=== PATIENT | female | born 1960 | race Hispanic/Latino ===

== ENCOUNTER 2017-09-29 21:48 | Emergency (ER) | payer BC ==
[~2017-09-29] VITALS: Ht 167.6 cm; Wt 127.0 kg
[~2017-09-29 21:48] MED LIST: BENAZEPRIL HCL10 MG PO; HYDROCHLOROTHIA25 MG PO; NORVASC5 MG PO; Z.0.AMLODIPINE BESY1 PO; Z.0.AZITHROMYCIN250 PO; Z.0.BENAZEPRIL HCL20 PO; Z.0.GLIPIZIDE10 MG PO; Z.0.LEVOTHYROXINE100; Z.2.METFORMIN HCL500 PO; ZIAC1 UDTAB PO; [UNRECOGNIZED DRUG - OTHER] PO
[2017-09-29] MEDS ORDERED: ACETAMINOPHEN 325 MG TAB PO ONE (22:30)
[2017-09-29 23:10] LABS: INFLUENZAE A&B ANTIGEN (RAPID) NEGATIVE (NEGATIVE); STREPTOCOCCUS GRP A ANTIGEN NEGATIVE (NEGATIVE)
--- NOTE | 2017-09-29 23:43 | Diagnostic Imaging Report ---
EXAMINATION: CHEST 2 VIEWS INDICATION: Cough, congestion COMPARISON: None FINDINGS: TUBES and LINES: None. LUNGS: Lungs are well inflated. There are bibasilar atelectasis. There is mild prominence of the central pulmonary vasculature, consistent with pulmonary venous congestion. PLEURA: No pleural effusion or pneumothorax. HEART AND MEDIASTINUM: The cardiomediastinal silhouette is unremarkable. There are atherosclerotic calcifications within the aorta. BONES AND SOFT TISSUES: No acute osseous lesion. Soft tissues are unremarkable. UPPER ABDOMEN: No free air under the diaphragm. IMPRESSION: No acute thoracic abnormality. Signed by: Dr. Uvaldo Hastings M.D. on 09/29/2017 11:40 PM
[2017-09-30 00:59] VITALS: BP 114/64
== END 2017-09-30 03:21 | disposition home or self-care (01) ==
LOC: ER 21:48
DX: J00 Acute nasopharyngitis [common cold] (principal); J02.9 Acute pharyngitis, unspecified; I10 Essential (primary) hypertension; E11.9 Type 2 diabetes mellitus without complications; E03.9 Hypothyroidism, unspecified
CPT/HCPCS: 71046; 83518; 87070; 87400; 99283

== ENCOUNTER 2018-05-26 10:52 | Emergency (ER) | payer BC ==
[~2018-05-26] VITALS: Ht 167.6 cm; Wt 128.4 kg
--- OUTSIDE RECORDS SUMMARY | 2018-05-26 10:54 | XMS REPORT | Continuity of Care Document ---
Author Author [facility] Interface Address Unknown Phone Unavailable Problems Problem Status Onset Date Classification Date Reported Comments Source R05 Active 01/12/2018 [facility] Unspecified cholesteatoma, left ear 10/19/2017 01/19/2018 [facility] [place] Active 10/04/2017 [facility] R06.02 Active 02/04/2016 [facility] M17.9 Active 05/14/2015 [facility] Diabetes Active Problem 01/19/2018 [facility] HTN (<span [id number]">Confirmed</span>) Active Problem 01/19/2018 [facility] Hypothyroidism Active Problem 01/19/2018 [facility] Pneumonia Resolved Problem 01/19/2018 [facility] Disorder of left external ear, unspecified 01/19/2018 [facility] Type 2 diabetes mellitus without complications Active Problem 12/15/2017 [facility] [place], [place] Morbid obesity due to excess calories Active Problem 12/15/2017 Nakul Draper MD, [place] Hypertensive heart disease without heart failure Active Problem 12/15/2017 Nakul Draper MD, [place] Dependence on supplemental oxygen Active Problem 12/15/2017 Nakul Draper MD, [place] Hypertensive heart disease with heart failure Active Problem 12/15/2017 Nakul Draper MD, [place] OSTEOARTHRITIS OF KNEE, UNSPECIFIED Active [facility] Medications Medication Details Route Status Patient Instructions Ordering Provider Order Date Source Acetaminophen 325 MG / Hydrocodone Bitartrate 7.5 MG Oral Tablet [[place] 7.5/325] See Instructions, PRN Pain Score 4-6, 1 -2 tab PO Q4-6H as needed, # 50 tab, 0 Refill(s)Special Instructions: 1 -2 tab PO Q4-6H as needed Active 05/26/2015 [facility] rivaroxaban 10 mg oral tablet 10 mg=1 tab, PO, Q24H, # 14 tab, 0 Refill(s) Active 05/25/2015 [facility] Hydrochlorothiazide 50 MG Oral Tablet 50 mg, 1 tab, Route: PO, Drug form: TAB, Daily, Dosing Weight 127.273, kg, Start date: 05/25/15 9:00:00, Duration: 30 day, Stop date: 06/23/15 9:00:00Notes: (Same as: Hydrodiuril) With food. No Longer Active 05/25/2015 [facility] benazepril 40 mg, Route: PO, Drug form: TAB, Daily, Dosing Weight 127.273, kg, Start date: 05/25/15 9:00:00, Duration: 30 day, Stop date: 06/23/15 9:00:00 No Longer Active 05/25/2015 [facility] Norvasc 10 mg, 2 tab, Route: PO, Drug form: TAB, Daily, Dosing Weight 127.273, kg, Start date: 05/25/15 9:00:00, Duration: 30 day, Stop date: 06/23/15 9:00:00Notes: (Same as: Norvasc) No Longer Active 05/25/2015 [facility] Prinivil 40 mg, 2 tab, Route: PO, Drug form: TAB, Daily, Start date: 05/25/15 9:00:00, Duration: 30 day, Stop date: 06/23/15 9:00:00Notes: (Same as: Prinivil, Zestril) No Longer Active 05/25/2015 [facility] Xarelto 10 mg, Route: PO, Daily, Dosing Weight 127.273, kg, Start date: 05/25/15 9:00:00, Duration: 30 day, Stop date: 06/23/15 9:00:00 No Longer Active 05/25/2015 [facility] Thyroxine 50 microgram, 1 tab, Route: PO, Drug form: TAB, Q630AM, Dosing Weight 127.273, kg, Start date: 05/25/15 6:30:00, Duration: 30 day, Stop date: 06/23/15 6:30:00Notes: Take 1 hour before or 2 hours after meal; Enteral feeds may interefere with the absorption of this medication.(Same as:Levothroid, Synthroid) No Longer Active 05/25/2015 [facility] rivaroxaban 10 mg, 1 tab, Route: PO, Drug form: TAB, Q24H, Dosing Weight 127.273, kg, Start date: 05/24/15 18:30:00, Duration: 30 day, Stop date: 06/22/15 18:30:00Notes: (Same as: Xarelto) Do Not Crush No Longer Active 05/24/2015 [facility] docusate sodium 100 mg oral capsule 100 mg, 1 cap, Route: PO, Drug form: CAP, BID, Dosing Weight 127.273, kg, Start date: 05/24/15 17:00:00, Duration: 30 day, Stop date: 06/23/15 9:00:00Notes: (Same as: Colace) (Do Not Crush) No Longer Active 05/24/2015 [facility] ceFAZolin (SCIP) 2 gm, 100 mL, Route: IVPB, Drug form: INJ, Q8H, Dosing Weight 127.273, kg, Start date: 05/24/15 16:00:00, Duration: 1 doses or times, Stop date: 05/24/15 16:00:00Notes: Same as: Ancef Inactive 05/24/2015 [facility] Insulin, Aspart, Human 2 unit, 0.02 mL, Route: SUB-Q, Drug form: SOLN, Bedtime, Dosing Weight 127.273, kg, PRN Blood Glucose Results, Start date: 05/24/15 14:48:00, Duration: 30 day, Stop date: 06/23/15 14:47:00Notes: Roll in palms of hands gently; Do not shake vigorously. (Same as: NovoLOG) "single patient use only" Stable for 28 days at room temperature. Expires in days from Date No Longer Active 05/24/2015 [facility] Glucagon 1 mg, Route: IM, Drug form: PDR/INJ, PRN, Dosing Weight 127.273, kg, PRN Blood Glucose Results, Start date: 05/24/15 14:48:00, Duration: 30 day, Stop date: 06/23/15 13:47:00 No Longer Active 05/24/2015 [facility] Dextrose 50% Syringe 12.5 gm, 25 mL, Route: IVP, Drug Form: INJ, Dosing Weight 127.273, kg, PRN, PRN Blood Glucose Results, Start date: 05/24/15 14:48:00, Duration: 30 day, Stop date: 06/23/15 13:47:00 No Longer Active 05/24/2015 [facility] Albuterol 0.83 MG/ML Inhalant Solution 2.49 mg, 3 mL, Route: NEB, Drug form: SOLN, PRN, Dosing Weight 127.273, kg, PRN Respiratory Protocol, Start date: 05/24/15 13:03:00, Duration: 30 day, Stop date: 06/23/15 12:02:00Notes: SEE RT DOCUMENTATION (Same as: Omid) No Longer Active 05/24/2015 [facility] Acetaminophen 325 MG / Hydrocodone Bitartrate 7.5 MG Oral Tablet [[place] 7.5/325] 1 tab, Route: PO, Drug Form: TAB, Dosing Weight 127.273, kg, Q4H, PRN Pain Score 7-10, Start date: 05/24/15 12:16:00, Duration: 30 day, Stop date: 06/23/15 12:15:00, pain score 4-10Notes: Same as [place] 325-7.5mg Do not exceed 4gm/day of acetaminophen. No Longer Active 05/24/2015 [facility] Al hydroxide/Mg hydroxide/simethicone 200 mg-200 mg-20 mg/5 mL oral suspension 30 ml, Route: PO, Drug Form: SUSP, Dosing Weight 127.273, kg, Q4H, PRN Indigestion, Start date: 05/24/15 12:16:00, Duration: 30 day, Stop date: 06/23/15 12:15:00Notes: (aluminum hydroxide-magnesium hyd-simethicone [phone]/5ml 30 ml ud MARLEN) No Longer Active 05/24/2015 [facility] Diphenhydramine 25 mg, 1 tab, Route: PO, Drug form: TAB, Q6H, Dosing Weight 127.273, kg, PRN Itching, Start date: 05/24/15 12:16:00, Duration: 30 day, Stop date: 06/23/15 12:15:00 No Longer Active 05/24/2015 [facility] Dulcolax Laxative 5 mg, 1 tab, Route: PO, Drug form: ECTAB, Q24H, Dosing Weight 127.273, kg, PRN Constipation, Start date: 05/24/15 12:16:00, Duration: 30 day, Stop date: 06/23/15 12:15:00Notes: (Same As: Dulcolax, Correctol) (Do Not Crush) "Do Not Crush" No Longer Active 05/24/2015 [facility] Lactated Ringers IV 1,000 mL 1,000 mL, Rate: 100 ml/hr, Infuse over: 10 hr, Route: IV, Dosing Weight 127.273 kg, Total Volume: 1,000, Start date: 05/24/15 12:16:00, Duration: 30 day, Stop date: 06/23/15 12:15:00 No Longer Active 05/24/2015 [facility] Acetaminophen 650 mg, 2 tab, Route: PO, Drug form: TAB, Q4H, Dosing Weight 127.273, kg, PRN Pain 1-3/Temp > 100.4 F, Start date: 05/24/15 12:16:00, Duration: 30 day, Stop date: 06/23/15 12:15:00Notes: Do not exceed 4 gm/day. (Same as: Tylenol) No Longer Active 05/24/2015 [facility] Ketorolac 15 mg, 1 mL, Route: IVP, Drug form: INJ, Q6H, Dosing Weight 127.273, kg, PRN Pain Score 1-3, Start date: 05/24/15 12:16:00, Duration: 3 day, Stop date: 05/27/15 12:15:00Notes: (Same as:Toradol) IV bolus must be given >15 seconds. Give IM administration slowly and deeply into the muscle. Not for use > 4 days. No Longer Active 05/24/2015 [facility] Ondansetron 4 mg, 2 mL, Route: IVP, Drug form: INJ, Q8H, Dosing Weight 127.273, kg, PRN Nausea & Vomiting, Start date: 05/24/15 12:16:00, Duration: 30 day, Stop date: 06/23/15 12:15:00Notes: (Same as: Zofran) MEDICATION WASTE Product Size: 4 mg Product Wasted: ___ mg No Longer Active 05/24/2015 [facility] Hydromorphone 0.3 mg, 0.3 mL, Route: IVP, Drug form: INJ, Q3H, Dosing Weight 127.273, kg, PRN Pain Score 4-6, Start date: 05/24/15 12:16:00, Duration: 30 day, Stop date: 06/23/15 12:15:00 No Longer Active 05/24/2015 [facility] Calcium Chloride 0.0014 MEQ/ML / Potassium Chloride 0.004 MEQ/ML / Sodium Chloride 0.103 MEQ/ML / Sodium Lactate 0.028 MEQ/ML Injectable Solution 1,000 mL, Rate: 25 ml/hr, Infuse over: 40 hr, Route: IV, Dosing Weight 127.273 kg, Total Volume: 1,000, Start date: 05/24/15 10:03:00, Duration: 30 day, Stop date: 06/23/15 10:02:00 Inactive 05/24/2015 [facility] levothyroxine 50 mcg (0.05 mg) oral tablet 50 microgram=1 tab, PO, Daily, # 30 tab, 0 Refill(s) Active 05/20/2015 [facility] Metformin hydrochloride 500 MG Oral Tablet 500 mg=1 tab, PO, BID-Meals, # 30 tab, 0 Refill(s) Active 05/20/2015 [facility] Hydrochlorothiazide 50 MG Oral Tablet 50 mg=1 tab, PO, Daily, # 30 tab, 0 Refill(s) Active 05/20/2015 [facility] benazepril 40 mg oral tablet 40 mg=1 tab, PO, Daily, # 90 tab, 0 Refill(s) Active 05/20/2015 [facility] Amlodipine 10 MG Oral Tablet [Norvasc] 10 mg=1 tab, PO, Daily, # 30 tab, 1 Refill(s) Active 05/20/2015 [facility] Furosemide 1 tablet Orally Active 40 MG Orally Once a day Bonny Draper MD, [place] Hydrochlorothiazide 1 tablet Orally Active 50 MG Orally Once a day Bonny Draper MD, [place] MetFORMIN HCl ER 1 tablet with evening meal Orally Active 500 MG Orally Once a day Bonny Draper MD, [place] Potassium Chloride ER 1 tablet with food Orally Active 10 MEQ Orally Once a day Bonny Draper MD, [place] GlipiZIDE 1 tablet Orally Active 10 MG Orally Once a day Bonny Draper MD, [place] Norvasc 1 tablet Orally Active 10 MG Orally Once a day Bonny Draper MD, [place] Benazepril HCl 1 tablet Orally Active 40 MG Orally Once a day Bonny Draper MD, [place] Levothyroxine Sodium 1 tablet Orally Active 50 MCG Orally Once a day Bonny Draper MD, [place] Allergies, Adverse Reactions, Alerts Substance Category Reaction Severity Reaction type Status Date Reported Comments Source N.K.D.A. Adverse Reaction Info Not Available Adverse Reaction Active 03/22/2016 Nakul Draper MD, [place] Immunizations Immunization Date Given Site Status Last Updated Comments Source Results Order Name Results Value Reference Range Date Interpretation Comments Source Chest 2 views DX Chest 2 views DX Clinical Indication: - Cough. Comparison: 02/17/2016 TECHNIQUE: Frontal and lateral chest radiographs were performed. (2 views) FINDINGS: LUNGS: Normal lung volumes. No interstitial or airspace opacities. No pleural effusions or pneumothorax. HEART AND MEDIASTINUM: The heart is normal in size. The trachea is in the midline. The bilateral marah are unremarkable. OSSEOUS STRUCTURES: No acute abnormality seen. IMPRESSION: No acute cardiopulmonary disease. SL: TIARA 01/12/2018 - - Read by: Jeri Alvarenga MD Dictated Date/time: 01/12/18 15:05 Electronically Signed by: Jeri Alvarenga MD 01/12/18 15:06 FINAL REPORT [facility] Internal Auditory Canal wo contrast CT Internal Auditory Canal wo contrast CT EXAM: CT TEMPORAL BONE WITHOUT CONTRAST DATE: 10/12/2017 9:33 AM SKIN LAP BONDER INDICATION: - H71.92 Unspecified cholesteatoma, left ear, H61.90 Disorder of external ear, unspecified, unspecified ear COMPARISON: None TECHNIQUE: Axial noncontrast CT images of the temporal bone, with coronal and sagittal reformats IV contrast: None. DLP: 382 mGy-cm FINDINGS: LEFT: There is mild soft tissue thickening along the quinteros of the EAC with polypoid thickening along the anteromedial wall measuring 5 x 3 mm. This can be correlated with clinical examination. The tympanic membrane is mildly thickened along the superior aspect. The scutum is intact.. The ossicles are unremarkable. The epitympanum and mesotympanum are clear. The hypotympanic recesses are clear. The mastoid air cells are clear. The tegmen and mastoid tympani are intact. The jugular bulb and carotid canal are unremarkable. The vestibule and cochlea are within normal limits. No semicircular dehiscence is seen. The IACs normal in caliber. RIGHT: There is soft tissue thickening all along the external auditory canal all the way to the tympanic membrane. This measures up to 2.5 mm in thickness. No polypoid thickening seen. The tympanic membrane is thickened. The epitympanum and mesotympanum are clear. There is focal soft tissue in the anterior aspect of the hypotympanum measuring 4 mm. The hypotympanic recesses are clear. The oval and round window niche are clear. The stapes is unremarkable. The inner ear structures are unremarkable. The semicircular canals are not dehiscent. The facial canal is unremarkable. Moderate mucosal thickening is seen in bilateral mastoid air cells. IMPRESSION: Left temporal bone: Mild soft tissue thickening all along the EAC quinteros with somewhat polypoid appearance along the anteromedial aspect. Mild thickening of the tympanic membrane. Findings may be related to chronic inflammatory process/canal fibrosis or acute otitis externa. This can be correlated with clinical examination. The middle ear cavity is clear. No ossicular or osseous erosions. Right temporal bone: Mild soft tissue thickening all along the EAC quinteros without polypoid thickening, may be acute or chronic inflammation or fibrosis. Tympanic membrane is thickened as well. The epitympanum and mesotympanum are clear. There is 4 mm soft tissue in the anterior aspect of the hypotympanum. The hypotympanic recesses are clear. No osseous erosions seen. Short interval follow-up may be considered. Moderate mucosal thickening in the maxillary sinuses. 10/12/2017 - - Read by: Chaya Lloyd Dictated Date/time: 10/12/17 11:35 Electronically Signed by: Chaya Lloyd 10/12/17 11:52 FINAL REPORT [facility] Chest 2 views DX Chest 2 views DX Study: Chest 2 views DX Clinical Indication: R06.2 Wheezing Comparison: Chest x-ray from 05/20/2015 FINDINGS: The cardiac silhouette is normal in size. The lungs are clear and without consolidation or congestion. No pleural effusion or pneumothorax is seen. The osseous structures are unremarkable. IMPRESSION: No acute cardiopulmonary disease. SL: [id number] 02/17/2016 - - Read by: Yovanny Jacobs MD Dictated Date/time: 02/17/16 16:33 Electronically Signed by: Yovanny Jacobs MD 02/17/16 16:33 FINAL REPORT [facility] Hct 31.0 % 36.0 - 48.0 05/26/2015 [facility] Hgb 9.8 g/dL 12.0 - 16.0 05/26/2015 [facility] Hct 33.1 % 36.0 - 48.0 05/25/2015 [facility] Hgb 10.6 g/dL 12.0 - 16.0 05/25/2015 [facility] CHEM PANEL eGFR 72 mL/min/1.73m2 05/24/2015 Result Comment: The eGFR is calculated using the CKD-EPI formula. In most young, healthy individuals the eGFR will be >90 mL/min/1.73m2. The eGFR declines with age. An eGFR of 60-89 may be normal in some populations, particularly the elderly, for whom the CKD-EPI formula has not been extensively validated. Use of the eGFR is not recommended in the following populations: Individuals with unstable creatinine concentrations, including patients and those with serious co-morbid conditions. Patients with extremes in muscle mass or diet. The data above are obtained from the National Kidney Disease Education Program (NKDEP) which additionally recommends that when the eGFR is used in patients with extremes of body mass index for purposes of drug dosing, the eGFR should be multiplied by the estimated BMI. [facility] CHEM PANEL Creatinine Lvl 0.9 mg/dL 0.5 - 1.4 05/24/2015 [facility] Platelet 341 K/CMM 133 - 450 05/24/2015 [facility] PTT 28.2 s 22.9 - 35.8 05/24/2015 [facility] Knee 1-2 Views unilateral DX Knee 1-2 Views unilateral DX Examination: Right knee, 2 views History: Arthritis Comparison: 05/20/2015 Findings: Two views of the right knee show new postoperative changes of total knee arthroplasty and patellar resurfacing with overlying soft tissue swelling and soft tissue gas. Anatomic alignment is maintained across the knee. IMPRESSION: Status post right total knee arthroplasty. SL: 16 05/24/2015 - - Read by: Yovanny Jacobs MD Dictated Date/time: 05/24/15 13:37 Electronically Signed by: Yovanny Jacobs MD 05/24/15 13:38 FINAL REPORT [facility] BLOOD BANK RESULTS Antibody Scrn Negative (05/20/15 12:58 PM) 05/20/2015 [facility] BLOOD BANK RESULTS ABO/Rh O NEG 05/20/2015 [facility] CHEM PANEL eGFR 98 mL/min/1.73m2 05/20/2015 Result Comment: The eGFR is calculated using the CKD-EPI formula. In most young, healthy individuals the eGFR will be >90 mL/min/1.73m2. The eGFR declines with age. An eGFR of 60-89 may be normal in some populations, particularly the elderly, for whom the CKD-EPI formula has not been extensively validated. Use of the eGFR is not recommended in the following populations: Individuals with unstable creatinine concentrations, including patients and those with serious co-morbid conditions. Patients with extremes in muscle mass or diet. The data above are obtained from the National Kidney Disease Education Program (NKDEP) which additionally recommends that when the eGFR is used in patients with extremes of body mass index for purposes of drug dosing, the eGFR should be multiplied by the estimated BMI. [facility] CHEM PANEL Total Protein 8.3 g/dL 6.4 - 8.4 05/20/2015 [facility] CHEM PANEL CO2 30 meq/L 24 - 32 05/20/2015 [facility] CHEM PANEL Albumin Lvl 3.6 g/dL 3.5 - 5.0 05/20/2015 [facility] CHEM PANEL Calcium Lvl 9.3 mg/dL 8.5 - 10.5 05/20/2015 [facility] CHEM PANEL Creatinine Lvl 0.7 mg/dL 0.5 - 1.4 05/20/2015 [facility] CHEM PANEL Bili Total 0.4 mg/dL 0.2 - 1.3 05/20/2015 [facility] CHEM PANEL BUN 14 mg/dL 7 - 22 05/20/2015 [facility] CHEM PANEL Glucose Lvl 125 mg/dL 70 - 99 05/20/2015 [facility] CHEM PANEL Alk Phos 123 unit/L 39 - 136 05/20/2015 [facility] CHEM PANEL AST 8 unit/L 0 - 37 05/20/2015 [facility] CHEM PANEL ALT 27 unit/L 0 - 65 05/20/2015 [facility] CHEM PANEL Potassium Lvl 3.6 meq/L 3.5 - 5.1 05/20/2015 [facility] CHEM PANEL Chloride Lvl 92 meq/L 95 - 109 05/20/2015 [facility] CHEM PANEL Sodium Lvl 131 meq/L 135 - 145 05/20/2015 [facility] CHEM PANEL AGAP 12.6 meq/L 10.0 - 20.0 05/20/2015 [facility] CHEM PANEL Globulin 4.7 g/dL 2.0 - 4.0 05/20/2015 [facility] CHEM PANEL B/C Ratio 20 6 - 25 05/20/2015 [facility] CHEM PANEL A/G Ratio 0.8 0.7 - 1.6 05/20/2015 [facility] HEMATOLOGY INR 1.12 0.85 - 1.17 05/20/2015 [facility] HEMATOLOGY PT 14.7 s 12.0 - 14.7 05/20/2015 [facility] HEMATOLOGY PTT 30.5 s 22.9 - 35.8 05/20/2015 [facility] HEMATOLOGY Platelet 349 K/CMM 133 - 450 05/20/2015 [facility] HEMATOLOGY MPV 7.5 fL 7.4 - 10.4 05/20/2015 [facility] HEMATOLOGY RDW 14.7 % 11.5 - 14.5 05/20/2015 [facility] HEMATOLOGY MCV 81.5 fL 80.0 - 98.0 05/20/2015 [facility] HEMATOLOGY MCHC 32.5 g/dL 32.0 - 36.0 05/20/2015 [facility] HEMATOLOGY Hgb 12.6 g/dL 12.0 - 16.0 05/20/2015 [facility] HEMATOLOGY MCH 26.5 pg 27.0 - 31.0 05/20/2015 [facility] HEMATOLOGY RBC 4.74 M/CMM 4.20 - 5.40 05/20/2015 [facility] HEMATOLOGY Hct 38.6 % 36.0 - 48.0 05/20/2015 [facility] HEMATOLOGY WBC 10.5 K/CMM 3.7 - 10.4 05/20/2015 [facility] HEMATOLOGY Basophils # 0.1 K/CMM 0.0 - 0.2 05/20/2015 [facility] HEMATOLOGY Eosinophils # 0.1 K/CMM 0.0 - 0.5 05/20/2015 [facility] HEMATOLOGY Monocytes # 0.7 K/CMM 0.0 - 0.8 05/20/2015 [facility] HEMATOLOGY Lymphocytes # 2.3 K/CMM 1.0 - 5.5 05/20/2015 [facility] HEMATOLOGY Segs-Bands # 7.3 K/CMM 1.5 - 8.1 05/20/2015 [facility] HEMATOLOGY Basophils 1.1 % 0.0 - 1.0 05/20/2015 [facility] HEMATOLOGY Monocytes 6.5 % 2.0 - 12.0 05/20/2015 [facility] HEMATOLOGY Eosinophils 1.2 % 0.0 - 4.0 05/20/2015 [facility] HEMATOLOGY Segs 69.2 % 45.0 - 75.0 05/20/2015 [facility] HEMATOLOGY Lymphocytes 22.0 % 20.0 - 40.0 05/20/2015 [facility] IMMUNOLOGY HIV 1/2 Ab Negative *NA* (05/20/15 12:58 PM) Negative 05/20/2015 [facility] URINE AND STOOL UA Color Ltyellow 05/20/2015 [facility] URINE AND STOOL UA Urobilinogen <=1.0 mg/dL 0.1 - 1.0 05/20/2015 [facility] URINE AND STOOL UA Sq Epi Occasional /LPF Few /LPF 05/20/2015 [facility] URINE AND STOOL UA Nitrite Negative (05/20/15 12:58 PM) Negative 05/20/2015 [facility] URINE AND STOOL UA Blood Negative (05/20/15 12:58 PM) Negative 05/20/2015 [facility] URINE AND STOOL UA Leuk Est Negative (05/20/15 12:58 PM) Negative 05/20/2015 [facility] URINE AND STOOL UA WBC null 0 - 5 05/20/2015 [facility] URINE AND STOOL UA RBC null 0 - 2 05/20/2015 [facility] URINE AND STOOL UA Bacteria Occasional /HPF None Seen /HPF 05/20/2015 [facility] URINE AND STOOL UA Turbidity Clear (05/20/15 12:58 PM) Clear 05/20/2015 [facility] URINE AND STOOL UA Bili Negative *NA* (05/20/15 12:58 PM) Negative 05/20/2015 [facility] URINE AND STOOL UA Ketones Negative mg/dL Negative mg/dL 05/20/2015 [facility] URINE AND STOOL UA Glucose Negative mg/dL Negative mg/dL 05/20/2015 [facility] URINE AND STOOL UA Protein Negative mg/dL Negative mg/dL 05/20/2015 [facility] URINE AND STOOL UA pH 6.0 5.0 - 8.0 05/20/2015 [facility] URINE AND STOOL UA Spec Grav 1.011 <=1.030 05/20/2015 [facility] BLOOD BANK RESULTS RBC product Product available (05/20/15 11:53 AM) 05/20/2015 [facility] Chest 2 views DX Chest 2 views DX PA and lateral: The cardiomediastinal silhouette, pulmonary vasculature and marah are within normal limits. The lungs and pleural spaces are clear. There are no significant osseous abnormalities. IMPRESSION: No acute radiographic abnormality in the chest. SL:13 05/20/2015 - - Read by: Rodriguez Domínguez MD Dictated Date/time: 05/20/15 14:06 Electronically Signed by: Rodriguez Domínguez MD 05/20/15 14:06 FINAL REPORT [facility] Bone length scanogram DX Bone length scanogram DX Bone length right lower extremity: Standing AP views of the right lower extremity were done for operative planning. Moderate to severe degenerative changes in the right knee are described further in the right knee report on the same day. Mild lateral subluxation of the tibia and varus of the right leg is noted. There are no other significant osseous abnormalities. SL:13 05/20/2015 - - Read by: Rodriguez Domínguez MD Dictated Date/time: 05/20/15 14:08 Electronically Signed by: Rodriguez Domínguez MD 05/20/15 14:09 FINAL REPORT [facility] Knee series 3 views DX Knee series 3 views DX Right knee 3 views: An axial view of the patella was included. There is narrowing of the joint spaces, worse in the medial tibiofemoral compartment with irregular sclerosis of the articular surfaces. Marginal spurs are noted around all the joint spaces. There is slight lateral subluxation of the tibia. There is no evidence of fractures or other acute osseous abnormalities. A small effusion in the suprapatellar bursa may be present. The soft tissues are otherwise unremarkable. IMPRESSION: Moderate to severe degenerative changes in the right knee. SL:13 05/20/2015 - - Read by: Rodriguez Domínguez MD Dictated Date/time: 05/20/15 14:06 Electronically Signed by: Rodriguez Domínguez MD 05/20/15 14:08 FINAL REPORT [facility] Vital Signs Vital Sign Value Date Comments Source Weight 276 03/22/2016 Nakul rDaper MD, [place] Heart Rate 77 03/22/2016 Nakul Draper MD, [place] Diastolic (mm Hg) 60 03/22/2016 Nakul Draper MD, [place] Systolic (mm Hg) 120 03/22/2016 Nakul Draper MD, [place] Weight 279 03/09/2016 Nakul Draper MD, [place] Heart Rate 86 03/09/2016 Nakul Draper MD, [place] Diastolic (mm Hg) 60 03/09/2016 Nakul Draper MD, [place] Systolic (mm Hg) 115 03/09/2016 Nakul Draper MD, [place] Systolic (mm Hg) 119 05/26/2015 [facility] Diastolic (mm Hg) 62 05/26/2015 [facility] Respitory Rate 16 05/26/2015 [facility] Temperature Oral (F) 99.7 F 05/26/2015 [facility] Heart Rate 104 05/26/2015 [facility] Systolic (mm Hg) 122 05/26/2015 [facility] Diastolic (mm Hg) 73 05/26/2015 [facility] Heart Rate 100 05/26/2015 [facility] Respitory Rate 18 05/26/2015 [facility] Temperature Oral (F) 98.8 F 05/26/2015 [facility] Respitory Rate 18 05/26/2015 [facility] Systolic (mm Hg) 108 05/26/2015 [facility] Diastolic (mm Hg) 68 05/26/2015 [facility] Heart Rate 105 05/26/2015 [facility] Temperature Oral (F) 99 F 05/26/2015 [facility] Height 167.64 cm 05/20/2015 [facility] Weight 127.273 05/20/2015 [facility] BMI Calculated 45.29 05/20/2015 [facility] Encounters Location Location Details Encounter Type Encounter Number Reason For Visit Attending Provider ADM Date DC Date Status Source [facility] Inpatient [id number] Francis Jansen 05/24/2015 05/26/2015 [facility] Outpatient [id number] Rosita Villarreal 02/17/2016 02/18/2016 [facility] Nakul Draper MD, PA Unknown [id number] 03/09/2016 03/09/2016 Nakul Draper MD, PA Nakul Draper MD, PA Unknown [id number] 03/09/2016 03/09/2016 Nakul Draper MD, [place] Unknown [id number] 03/09/2016 03/09/2016 Nakul Draper MD, PA Nakul Draper MD, PA echo/carotid/arterial dopplers [id number] 03/09/2016 03/09/2016 Nakul Draper MD, PA Nakul Draper MD, PA echo/carotid/arterial dopplers [id number] 03/09/2016 03/09/2016 Nakul Draper MD, PA Nakul Draper MD, PA echo/carotid/arterial dopplers [id number] 03/09/2016 03/09/2016 Nakul Draper MD, PA Nakul Draper MD, PA Follow-Up [id number] 03/22/2016 03/22/2016 Nakul Draper MD, PA [facility] Outpatient [id number] Huang Stevens 10/12/2017 10/13/2017 [facility] Outpatient [id number] Rosita Villarreal 01/12/2018 01/13/2018 [facility] Procedures Procedure Code Date Perfomer Comments Source section [id number] [facility]
--- OUTSIDE RECORDS SUMMARY | 2018-05-26 10:55 | XMS REPORT ---
Author Author Nakul Draper Organization [employer] Address Unknown Phone Unavailable Care Team Providers Care Casing Tier Name Role Phone Nakul Draper CP Unavailable Encounters Encounter Location Date Unknown Nakul Draper MD, PA Mar 09, 2016 echo/carotid/arterial dopplers Nakul Draper MD, PA Mar 09, 2016 Problems Problem Type Condition ICD-9 Code Onset Dates Condition Status Problem Hypertensive heart disease with heart failure I11.0 Active Problem Morbid (severe) obesity due to excess calories E66.01 Active Problem Type 2 diabetes mellitus without complications E11.9 Active Problem Dependence on supplemental oxygen Z99.81 Active Social History Social History Element Qualifiers Date Reported Tobacco Use: . Are you a: never smoker Mar 09, 2016 Marital Status: . Mar 09, 2016 Do you drink alcohol? . Status: No Mar 09, 2016 Summary Purpose [employer] Submission
--- OUTSIDE RECORDS SUMMARY | 2018-05-26 10:55 | XMS REPORT | Summary of Care ---
Author Author [facility] Organization [facility] Address Unknown Phone Unavailable Encounter HQ Marleer_jj(FIN) [id number] Date(s): 02/17/16 - 02/17/16 [facility] [address] [place] [address]- Discharge Disposition: Home Attending Physician: Rosita Villarreal MD Vital Signs No data available for this section Problem List Condition Effective Dates Status Health Status Informant Diabetes(Confirmed) Active HTN Active (hypertension)(Confi rmed) Hypothyroidism(Confi Active rmed) Pneumonia(Confirmed) Resolved Allergies, Adverse Reactions, Alerts Substance Reaction Severity Status NKDA Active Medications No data available for this section Results No data available for this section Immunizations No data available for this section Procedures Procedure Date Related Diagnosis Body Site section Social History Social History Type Response Alcohol Past Smoking Status Former smoker; Exposure to Tobacco Smoke None; Cigarette Smoking Last 365 Days No; Reg Smoking Cessation Counseling No Assessment and Plan No data available for this section
--- OUTSIDE RECORDS SUMMARY | 2018-05-26 10:55 | XMS REPORT | Summary of Care ---
Author Author KENYA RAVI M.D. Organization Unknown Address Unknown Phone Unavailable Care Team Providers Care Switching Clerk Name Role Phone KENYA RAVI M.D. Unavailable Unavailable Unavailable Unavailable Functional Status Name Dates Details Functional status health issues are not documented Status: Name Dates Details Cognitive status health issues are not documented Status: Problems Name Dates Details Otitis externa (380.10, H60.90) Status: Active Lesion of external ear canal (380.9, H61.90) Status: Active Bilateral otitis externa (380.10, H60.93) Status: Active Medications Name Dates Details MetFORMIN HCl TABS Active Norvasc TABS * Refills: 0 Active GlipiZIDE TABS * Refills: 0 Active Norvasc 10 MG Oral Tablet * Refills: 0 Active Potassimin TABS * Refills: 0 Active Furosemide TABS * Refills: 0 Active Ciprodex 0.3-0.1 % Otic Suspension INSTILL 4 DROPS IN THE AFFECTED EAR(S) TWICE DAILY * Quantity: 1 Refills: 1 KENYA RAVI M.D. * Start : 03-Oct-2017 Active 7.5 ML Bottle Allergies and Adverse Reactions Name Dates Details No Known Allergies (Allergy) Status: Active Past Medical History Name Dates Details History of diabetes mellitus (V12.29, Z86.39) Status: Resolved History of hypertension (V12.59, Z86.79) Status: Resolved Procedures Procedure Dates Details CT Temporal bone wo contrast 11299 Date: 03-Oct-2017 Immunization Name Dates Details Immunizations not documented Family History Name Dates Details No pertinent family history Comments: Unknown Status: Active Social History Name Dates Details - Status: Name Dates Details Never smoker Vital Signs Date Test Result Details [id number] Weight 286.375 lb Status: Body Mass Index Calculated 46.22 kg/m2 Status: Body Surface Area Calculated 2.33 m2 Status: Height 66 in Status: Results Date Description Value Details [id number] CT Internal Auditory Canal w/o contrast 76033 Internal Auditory Canal w/o contrast CT SEE NOTES Comments: EXAM: CT TEMPORAL BONE WITHOUT CONTRASTDATE: 10/12/2017 9:33 AM CSTINDICATION: - H71.92 Unspecified cholesteatoma, left ear, H61.90 Disorderof external ear, unspecified, unspecified earCOMPARISON: NoneTECHNIQUE:Axial noncontrast CT images of the temporal bone, with coronal and sagittalreformats IV contrast: None.DLP: 382 mGy-cmFINDINGS:LEFT:There is mild soft tissue thickening along the quinteros of the EAC with polypoidthickening along the anteromedial wall measuring 5 x 3 mm. This can becorrelated with clinical examination. The tympanic membrane is mildly thickenedalong the superior aspect. The scutum is intact.. The ossicles areunremarkable. The epitympanum and mesotympanum are clear. The hypotympanicrecesses are clear. The mastoid air cells are clear. The tegmen and mastoidtympani are intact. The jugular bulb and carotid canal are unremarkable. Thevestibule and cochlea are within normal limits. No semicircular dehiscence isseen. The IACs normal in caliber.RIGHT:There is soft tissue thickening all along the external auditory canal all theway to the tympanic membrane. This measures up to 2.5 mm in thickness. Nopolypoid thickening seen. The tympanic membrane is thickened. The epitympanumand mesotympanum are clear. There is focal soft tissue in the anterior aspectof the hypotympanum measuring 4 mm. The hypotympanic recesses are clear. Theoval and round window niche are clear. The stapes is unremarkable. The innerear structures are unremarkable. The semicircular canals are not dehiscent. Thefacial canal is unremarkable.Moderate mucosal thickening is seen in bilateral mastoid air cells.IMPRESSION:Left temporal bone:Mild soft tissue thickening all along the EAC quinteros with somewhat polypoidappearance along the anteromedial aspect. Mild thickening of the tympanicmembrane. Findings may be related to chronic inflammatory process/canalfibrosis or acute otitis externa. This can be correlated with clinicalexamination. The middle ear cavity is clear. No ossicular or osseous erosions.Right temporal bone:Mild soft tissue thickening all along the EAC quinteros without polypoidthickening, may be acute or chronic inflammation or fibrosis. Tympanic membraneis thickened as well. The epitympanum and mesotympanum are clear. There is 4 mmsoft tissue in the anterior aspect of the hypotympanum. The hypotympanicrecesses are clear. No osseous erosions seen. Short interval follow- up may beconsidered.Moderate mucosal thickening in the maxillary sinuses.--Read by: Chaya LloydapDictated Date/time: 10/12/17 11:35Electronically Signed by: Chaya Lloyd 10/12/1810:52FINAL REPORT Plan of Care Name Dates Details Planned Observations Planned Goals not documented Interventions Provided Plan* 57 yo F with resolved OE bilaterally; right EAC skin tag. Left aural polyp resolved. * - dry ear precautions * - no need for biopsy at this time * - RTC PRN Instructions Name Dates Details Instructions not documented Encounters Appointment; KENYA RAVI M.D. Encounter Diagnosis: Problem not documented On: 03-Oct-2017 10:30 Appointment; BOGDAN BUSH Encounter Diagnosis: Problem not documented On: 31-Oct-2017 11:00 Appointment; KENYA RAVI M.D. Encounter Diagnosis: Problem not documented On: 31-Oct-2017 11:30
--- OUTSIDE RECORDS SUMMARY | 2018-05-26 10:55 | XMS REPORT | Summary of Care ---
Author Author [facility] Organization [facility] Address Unknown Phone Unavailable Encounter HQ Jamal_jj(FIN) [id number] Date(s): 01/12/18 - 01/12/18 [facility] [address] [place] [address]- Discharge Disposition: Home or Self Care Attending Physician: Rosita Villarreal MD Vital Signs [...] Procedures Procedure Date Related Diagnosis Body Site Status section Completed Social History Social History Type Response Alcohol Past Smoking Status Former smoker; Exposure to Tobacco Smoke None; Cigarette Smoking Last 365 Days No; Reg Smoking Cessation Counseling No entered on: 05/24/15 Assessment and Plan No data available for this section
--- OUTSIDE RECORDS SUMMARY | 2018-05-26 10:55 | XMS REPORT | Summary of Care ---
Author Author [facility] Organization [facility] Address Unknown Phone Unavailable Encounter AMY Dubon(VIDAL) [id number] Date(s): 05/24/15 - 05/26/15 [facility] [address] [place] [address]- [phone] Discharge Disposition: Home Attending Physician: Francis Jansen MD Admitting Physician: Francis Jansen MD Referring Physician: Francis Jansen MD Vital Signs 1 2 3 Most recent to oldest [Reference Range]: 167.64 cm (05/20/15 11:47 AM) Height 1 2 3 Most recent to oldest [Reference Range]: 99.7 DegF *HI* (05/26/15 11:47 AM) 98.8 DegF (05/26/15 8:25 AM) 99 DegF (05/26/15 4:14 AM) Temperature Oral [96.4-99.1 DegF] 1 2 3 Most recent to oldest [Reference Range]: 119/62 mmHg (05/26/15 11:47 AM) 122/73 mmHg (05/26/15 8:25 AM) 108/68 mmHg (05/26/15 4:14 AM) Blood Pressure [90-140/60-90 mmHg] 1 2 3 Most recent to oldest [Reference Range]: 16 BRMIN (05/26/15 11:47 AM) 18 BRMIN (05/26/15 8:25 AM) 18 BRMIN (05/26/15 7:57 AM) Respiratory Rate [14-20 BRMIN] 1 2 3 Most recent to oldest [Reference Range]: 104 bpm *HI* (05/26/15 11:47 AM) 100 bpm (05/26/15 8:25 AM) 105 bpm *HI* (05/26/15 4:14 AM) Peripheral Pulse Rate [60-100 bpm] 1 2 3 Most recent to oldest [Reference Range]: 127.273 kg (05/20/15 11:47 AM) Weight 1 2 3 Most recent to oldest [Reference Range]: 45.29 m2 (05/20/15 11:47 AM) Body Mass Index Problem List Condition Effective Dates Status Health Status Informant Diabetes(Confirmed) Active HTN Active (hypertension)(Confi rmed) Hypothyroidism(Confi Active rmed) Pneumonia(Confirmed) Resolved Allergies, Adverse Reactions, Alerts Substance Reaction Severity Status NKDA Active Medications acetaminophen 650 mg, 2 tab, Route: PO, Drug form: TAB, Q4H, Dosing Weight 127.273, kg, PRN Pa in 1-3/Temp > 100.4 F, Start date: 05/24/15 12:16:00, Duration: 30 day, Stop date: 06/23/15 12:15:00 Notes: Do not exceed 4 gm/day. (Same as: Tylenol) Start Date: 05/24/15 Stop Date: 05/26/15 Status: Discontinued Al hydroxide/Mg hydroxide/simethicone 200 mg-200 mg-20 mg/5 mL oral suspension 30 ml, Route: PO, Drug Form: SUSP, Dosing Weight 127.273, kg, Q4H, PRN Indigesti on, Start date: 05/24/15 12:16:00, Duration: 30 day, Stop date: 06/23/15 12:15:0 0 Notes: (aluminum hydroxide-magnesium hyd-simethicone [phone]/5ml 30 ml ud S US) Start Date: 05/24/15 Stop Date: 05/26/15 Status: Discontinued albuterol 0.083% inhalation solution 2.49 mg, 3 mL, Route: NEB, Drug form: SOLN, PRN, Dosing Weight 127.273, kg, PRN Respiratory Protocol, Start date: 05/24/15 13:03:00, Duration: 30 day, Stop date : 06/23/15 12:02:00 Notes: SEE RT DOCUMENTATION (Same as: Omid) Start Date: 05/24/15 Stop Date: 05/26/15 Status: Discontinued benazepril 40 mg, Route: PO, Drug form: TAB, Daily, Dosing Weight 127.273, kg, Start date: 05/25/15 9:00:00, Duration: 30 day, Stop date: 06/23/15 9:00:00 Start Date: 05/25/15 Stop Date: 05/24/15 Status: Deleted benazepril 40 mg oral tablet 40 mg=1 tab, PO, Daily, # 90 tab, 0 Refill(s) Start Date: 05/20/15 Status: Ordered ceFAZolin (SCIP) 2 gm, 100 mL, Route: IVPB, Drug form: INJ, Q8H, Dosing Weight 127.273, kg, Start date: 05/24/15 16:00:00, Duration: 1 doses or times, Stop date: 05/24/15 16:00: 00 Notes: Same as: Ancef Start Date: 05/24/15 Stop Date: 05/24/15 Status: Completed Dextrose 50% Syringe 12.5 gm, 25 mL, Route: IVP, Drug Form: INJ, Dosing Weight 127.273, kg, PRN, PRN Blood Glucose Results, Start date: 05/24/15 14:48:00, Duration: 30 day, Stop devon e: 06/23/15 13:47:00 Start Date: 05/24/15 Stop Date: 05/26/15 Status: Discontinued Dextrose 50% Syringe 25 gm, 50 mL, Route: IVP, Drug Form: INJ, Dosing Weight 127.273, kg, PRN, PRN Bl ood Glucose Results, Start date: 05/24/15 14:48:00, Duration: 30 day, Stop date: 06/23/15 13:47:00 Start Date: 05/24/15 Stop Date: 05/26/15 Status: Discontinued diphenhydrAMINE 25 mg, 1 tab, Route: PO, Drug form: TAB, Q6H, Dosing Weight 127.273, kg, PRN Itc rohit, Start date: 05/24/15 12:16:00, Duration: 30 day, Stop date: 06/23/15 12:15 :00 Start Date: 05/24/15 Stop Date: 05/26/15 Status: Discontinued docusate sodium 100 mg oral capsule 100 mg, 1 cap, Route: PO, Drug form: CAP, BID, Dosing Weight 127.273, kg, Start date: 05/24/15 17:00:00, Duration: 30 day, Stop date: 06/23/15 9:00:00 Notes: (Same as: Colace) (Do Not Crush) Start Date: 05/24/15 Stop Date: 05/26/15 Status: Discontinued Dulcolax Laxative 5 mg, 1 tab, Route: PO, Drug form: ECTAB, Q24H, Dosing Weight 127.273, kg, PRN C onstipation, Start date: 05/24/15 12:16:00, Duration: 30 day, Stop date: 5 12:15:00 Notes: (Same As: Dulcolax, Correctol) (Do Not Crush) "Do Not Crush" Start Date: 05/24/15 Stop Date: 05/26/15 Status: Discontinued glucagon 1 mg, Route: IM, Drug form: PDR/INJ, PRN, Dosing Weight 127.273, kg, PRN Blood G lucose Results, Start date: 05/24/15 14:48:00, Duration: 30 day, Stop date: 06/06 03/20 13:47:00 Start Date: 05/24/15 Stop Date: 05/26/15 Status: Discontinued hydrochlorothiazide 50 mg oral tablet 50 mg, 1 tab, Route: PO, Drug form: TAB, Daily, Dosing Weight 127.273, kg, Start date: 05/25/15 9:00:00, Duration: 30 day, Stop date: 06/23/15 9:00:00 Notes: (Same as: Hydrodiuril) With food. Start Date: 05/25/15 Stop Date: 05/26/15 Status: Discontinued hydrochlorothiazide 50 mg oral tablet 50 mg=1 tab, PO, Daily, # 30 tab, 0 Refill(s) Start Date: 05/20/15 Status: Ordered hydromorphone 0.3 mg, 0.3 mL, Route: IVP, Drug form: INJ, Q3H, Dosing Weight 127.273, kg, PRN Pain Score 4-6, Start date: 05/24/15 12:16:00, Duration: 30 day, Stop date: 06/06 03/20 12:15:00 Start Date: 05/24/15 Stop Date: 05/26/15 Status: Discontinued insulin aspart 2 unit, 0.02 mL, Route: SUB-Q, Drug form: SOLN, Bedtime, Dosing Weight 127.273, kg, PRN Blood Glucose Results, Start date: 05/24/15 14:48:00, Duration: 30 day, Stop date: 06/23/15 14:47:00 Notes: Roll in palms of hands gently; Do not shake vigorously. (Same as: NovoLO G)"single patient use only" Stable for 28 days at room temperature.Expires in _ ____ days from Date Start Date: 05/24/15 Stop Date: 05/26/15 Status: Discontinued insulin aspart 3 unit, 0.03 mL, Route: SUB-Q, Drug form: SOLN, Bedtime, Dosing Weight 127.273, kg, PRN Blood Glucose Results, Start date: 05/24/15 14:48:00, Duration: 30 day, Stop date: 06/23/15 14:47:00 Notes: Roll in palms of hands gently; Do not shake vigorously. (Same as: NovoLO G)"single patient use only" Stable for 28 days at room temperature.Expires in _ ____ days from Date Start Date: 05/24/15 Stop Date: 05/26/15 Status: Discontinued insulin aspart 1 unit, 0.01 mL, Route: SUB-Q, Drug form: SOLN, Bedtime, Dosing Weight 127.273, kg, PRN Blood Glucose Results, Start date: 05/24/15 14:48:00, Duration: 30 day, Stop date: 06/23/15 14:47:00 Notes: Roll in palms of hands gently; Do not shake vigorously. (Same as: NovoLO G)"single patient use only" Stable for 28 days at room temperature.Expires in _ ____ days from Date Start Date: 05/24/15 Stop Date: 05/26/15 Status: Discontinued insulin aspart 2 unit, 0.02 mL, Route: SUB-Q, Drug form: SOLN, TID-Before Meals, Dosing Weight 127.273, kg, PRN Blood Glucose Results, Start date: 05/24/15 14:48:00, Duration: 30 day, Stop date: 06/23/15 14:47:00 Notes: Roll in palms of hands gently; Do not shake vigorously. (Same as: NovoLO G)"single patient use only" Stable for 28 days at room temperature.Expires in _ ____ days from Date Start Date: 05/24/15 Stop Date: 05/26/15 Status: Discontinued insulin aspart 4 unit, 0.04 mL, Route: SUB-Q, Drug form: SOLN, TID-Before Meals, Dosing Weight 127.273, kg, PRN Blood Glucose Results, Start date: 05/24/15 14:48:00, Duration: 30 day, Stop date: 06/23/15 14:47:00 Notes: Roll in palms of hands gently; Do not shake vigorously. (Same as: NovoLO G)"single patient use only" Stable for 28 days at room temperature.Expires in _ ____ days from Date Start Date: 05/24/15 Stop Date: 05/26/15 Status: Discontinued insulin aspart 10 unit, 0.1 mL, Route: SUB-Q, Drug form: SOLN, TID-Before Meals, Dosing Weight 127.273, kg, PRN Blood Glucose Results, Start date: 05/24/15 14:48:00, Duration: 30 day, Stop date: 06/23/15 14:47:00 Notes: Roll in palms of hands gently; Do not shake vigorously. (Same as: NovoLO G)"single patient use only" Stable for 28 days at room temperature.Expires in _ ____ days from Date Start Date: 05/24/15 Stop Date: 05/26/15 Status: Discontinued insulin aspart 6 unit, 0.06 mL, Route: SUB-Q, Drug form: SOLN, TID-Before Meals, Dosing Weight 127.273, kg, PRN Blood Glucose Results, Start date: 05/24/15 14:48:00, Duration: 30 day, Stop date: 06/23/15 14:47:00 Notes: Roll in palms of hands gently; Do not shake vigorously. (Same as: NovoLO G)"single patient use only" Stable for 28 days at room temperature.Expires in _ ____ days from Date Start Date: 05/24/15 Stop Date: 05/26/15 Status: Discontinued insulin aspart 8 unit, 0.08 mL, Route: SUB-Q, Drug form: SOLN, TID-Before Meals, Dosing Weight 127.273, kg, PRN Blood Glucose Results, Start date: 05/24/15 14:48:00, Duration: 30 day, Stop date: 06/23/15 14:47:00 Notes: Roll in palms of hands gently; Do not shake vigorously. (Same as: NovoLO G)"single patient use only" Stable for 28 days at room temperature.Expires in _ ____ days from Date Start Date: 05/24/15 Stop Date: 05/26/15 Status: Discontinued insulin aspart 4 unit, 0.04 mL, Route: SUB-Q, Drug form: SOLN, Bedtime, Dosing Weight 127.273, kg, PRN Blood Glucose Results, Start date: 05/24/15 14:48:00, Duration: 30 day, Stop date: 06/23/15 14:47:00 Notes: Roll in palms of hands gently; Do not shake vigorously. (Same as: NovoLO G)"single patient use only" Stable for 28 days at room temperature.Expires in _ ____ days from Date Start Date: 05/24/15 Stop Date: 05/26/15 Status: Discontinued ketOROLAC 15 mg, 1 mL, Route: IVP, Drug form: INJ, Q6H, Dosing Weight 127.273, kg, PRN Brody n Score 1-3, Start date: 05/24/15 12:16:00, Duration: 3 day, Stop date: 05/27/15 12:15:00 Notes: (Same as:Toradol) IV bolus must be given >15 seconds. Give IM administration slowly and deeply into the muscle. Not for use > 4 days. Start Date: 05/24/15 Stop Date: 05/26/15 Status: Discontinued Lactated Ringers Injection IV 1000 mL 1,000 mL, Rate: 25 ml/hr, Infuse over: 40 hr, Route: IV, Dosing Weight 127.273 k g, Total Volume: 1,000, Start date: 05/24/15 10:03:00, Duration: 30 day, Stop da te: 06/23/15 10:02:00 Start Date: 05/24/15 Stop Date: 05/24/15 Status: Discontinued Lactated Ringers IV 1,000 mL 1,000 mL, Rate: 100 ml/hr, Infuse over: 10 hr, Route: IV, Dosing Weight 127.273 kg, Total Volume: 1,000, Start date: 05/24/15 12:16:00, Duration: 30 day, Stop d ate: 06/23/15 12:15:00 Start Date: 05/24/15 Stop Date: 05/26/15 Status: Discontinued levothyroxine 50 microgram, 1 tab, Route: PO, Drug form: TAB, Q630AM, Dosing Weight 127.273, k g, Start date: 05/25/15 6:30:00, Duration: 30 day, Stop date: 06/23/15 6:30:00 Notes: Take 1 hour before or 2 hours after meal; Enteral feeds may interefere wi th the absorption of this medication.(Same as:Levothroid, Synthroid) Start Date: 05/25/15 Stop Date: 05/26/15 Status: Discontinued levothyroxine 50 mcg (0.05 mg) oral tablet 50 microgram=1 tab, PO, Daily, # 30 tab, 0 Refill(s) Start Date: 05/20/15 Status: Ordered metFORMIN 500 mg oral tablet 500 mg=1 tab, PO, BID-Meals, # 30 tab, 0 Refill(s) Start Date: 05/20/15 Status: Ordered Reno 7.5/325 oral tablet See Instructions, PRN Pain Score 4-6, 1 -2 tab PO Q4-6H as needed, # 50 tab, 0 R efill(s) Special Instructions: 1 -2 tab PO Q4-6H as needed Start Date: 05/26/15 Stop Date: 06/26/15 Status: Ordered [place] 7.5/325 oral tablet 1 tab, Route: PO, Drug Form: TAB, Dosing Weight 127.273, kg, Q4H, PRN Pain Score 7-10, Start date: 05/24/15 12:16:00, Duration: 30 day, Stop date: 06/23/15 12:1 5:00, pain score 4-10 Notes: Same as [place] 325-7.5mg Do not exceed 4gm/day of acetaminophen. Start Date: 05/24/15 Stop Date: 05/26/15 Status: Discontinued Norvasc 10 mg, 2 tab, Route: PO, Drug form: TAB, Daily, Dosing Weight 127.273, kg, Start date: 05/25/15 9:00:00, Duration: 30 day, Stop date: 06/23/15 9:00:00 Notes: (Same as: Norvasc) Start Date: 05/25/15 Stop Date: 05/26/15 Status: Discontinued Norvasc 10 mg oral tablet 10 mg=1 tab, PO, Daily, # 30 tab, 1 Refill(s) Start Date: 05/20/15 Status: Ordered ondansetron 4 mg, 2 mL, Route: IVP, Drug form: INJ, Q8H, Dosing Weight 127.273, kg, PRN Naus ea & Vomiting, Start date: 05/24/15 12:16:00, Duration: 30 day, Stop date: 06/23/15 12:15:00 Notes: (Same as: Lana) MEDICATION WASTE Product Size: 4 mgProduct Was areli: ___ mg Start Date: 05/24/15 Stop Date: 05/26/15 Status: Discontinued Prinivil 40 mg, 2 tab, Route: PO, Drug form: TAB, Daily, Start date: 05/25/15 9:00:00, Du ration: 30 day, Stop date: 06/23/15 9:00:00 Notes: (Same as: Prinivil, Zestril) Start Date: 05/25/15 Stop Date: 05/26/15 Status: Discontinued rivaroxaban 10 mg, 1 tab, Route: PO, Drug form: TAB, Q24H, Dosing Weight 127.273, kg, Start date: 05/24/15 18:30:00, Duration: 30 day, Stop date: 06/22/15 18:30:00 Notes: (Same as: Xarelto)Do Not Crush Start Date: 05/24/15 Stop Date: 05/26/15 Status: Discontinued rivaroxaban 10 mg oral tablet 10 mg=1 tab, PO, Q24H, # 14 tab, 0 Refill(s) Start Date: 05/25/15 Status: Ordered Xarelto 10 mg, Route: PO, Daily, Dosing Weight 127.273, kg, Start date: 05/25/15 9:00:00 , Duration: 30 day, Stop date: 06/23/15 9:00:00 Start Date: 05/25/15 Stop Date: 05/24/15 Status: Deleted Results BLOOD BANK RESULTS 1 2 3 Most recent to oldest [Reference Range]: O NEG *Unknown* (05/20/15 12:58 PM) ABO/Rh Negative (05/20/15 12:58 PM) Antibody Scrn Product available (05/20/15 11:53 AM) RBC product ELECTROLYTES 1 2 3 Most recent to oldest [Reference Range]: 131 mEq/L *LOW* (05/20/15 12:58 PM) Sodium Lvl [135-145 mEq/L] 3.6 mEq/L (05/20/15 12:58 PM) Potassium Lvl [3.5-5.1 mEq/L] 92 mEq/L *LOW* (05/20/15 12:58 PM) Chloride Lvl [95-109 mEq/L] 30 mEq/L (05/20/15 12:58 PM) CO2 [24-32 mEq/L] 12.6 mEq/L (05/20/15 12:58 PM) AGAP [10.0-20.0 mEq/L] CHEM PANEL 1 2 3 Most recent to oldest [Reference Range]: 0.9 mg/dL (05/24/15 4:19 PM) 0.7 mg/dL (05/20/15 12:58 PM) Creatinine Lvl [0.5-1.4 mg/dL] 72 mL/min/1.73m2 1 *NA* (05/24/15 4:19 PM) 98 mL/min/1.73m2 2 *NA* (05/20/15 12:58 PM) eGFR 14 mg/dL (05/20/15 12:58 PM) BUN [7-22 mg/dL] 20 (05/20/15 12:58 PM) B/C Ratio [6-25] 125 mg/dL *HI* (05/20/15 12:58 PM) Glucose Lvl [70-99 mg/dL] 8.3 g/dL (05/20/15 12:58 PM) Total Protein [6.4-8.4 g/dL] 3.6 g/dL (05/20/15 12:58 PM) Albumin Lvl [3.5-5.0 g/dL] 4.7 g/dL *HI* (05/20/15 12:58 PM) Globulin [2.0-4.0 g/dL] 0.8 (05/20/15 12:58 PM) A/G Ratio [0.7-1.6] 9.3 mg/dL (05/20/15 12:58 PM) Calcium Lvl [8.5-10.5 mg/dL] 27 unit/L (05/20/15 12:58 PM) ALT [0-65 unit/L] 8 unit/L (05/20/15 12:58 PM) AST [0-37 unit/L] 123 unit/L (05/20/15 12:58 PM) Alk Phos [39-136 unit/L] 0.4 mg/dL (05/20/15 12:58 PM) Bili Total [0.2-1.3 mg/dL] 1Result Comment: The eGFR is calculated using the [...] from the National Kidney Disease Education Program ( NKDEP) which additionally recommends that when the eGFR is used in patients with extremes of body mass index for purposes of drug dosing, the eGFR should be mul tiplied by the estimated BMI. 2Result Comment: The eGFR is calculated using the [...] from the National Kidney Disease Education Program ( NKDEP) which additionally recommends that when the eGFR is used in patients with extremes of body mass index for purposes of drug dosing, the eGFR should be mul tiplied by the estimated BMI. URINE AND STOOL 1 2 3 Most recent to oldest [Reference Range]: Clear (05/20/15 12:58 PM) UA Turbidity [Clear] Ltyellow *NA* (05/20/15 12:58 PM) UA Color 6.0 (05/20/15 12:58 PM) UA pH [5.0-8.0] 1.011 (05/20/15 12:58 PM) UA Spec Grav [<=1.030] Negative mg/dL *NA* (05/20/15 12:58 PM) UA Glucose [Negative mg/dL] Negative (05/20/15 12:58 PM) UA Blood [Negative] Negative mg/dL *NA* (05/20/15 12:58 PM) UA Ketones [Negative mg/dL] Negative mg/dL (05/20/15 12:58 PM) UA Protein [Negative mg/dL] <=1.0 mg/dL *NA* (05/20/15 12:58 PM) UA Urobilinogen [0.1-1.0 mg/dL] Negative *NA* (05/20/15 12:58 PM) UA Bili [Negative] Negative (05/20/15 12:58 PM) UA Leuk Est [Negative] Negative (05/20/15 12:58 PM) UA Nitrite [Negative] <1 /HPF (05/20/15 12:58 PM) UA WBC [0-5 /HPF] <1 /HPF (05/20/15 12:58 PM) UA RBC [0-2 /HPF] Occasional /HPF *NA* (05/20/15 12:58 PM) UA Bacteria [None Seen /HPF] Occasional /LPF *NA* (05/20/15 12:58 PM) UA Sq Epi [Few /LPF] IMMUNOLOGY 1 2 3 Most recent to oldest [Reference Range]: Negative *NA* (05/20/15 12:58 PM) HIV 1/2 Ab [Negative] HEMATOLOGY 1 2 3 Most recent to oldest [Reference Range]: 10.5 K/CMM *HI* (05/20/15 12:58 PM) WBC [3.7-10.4 K/CMM] 4.74 M/CMM (05/20/15 12:58 PM) RBC [4.20-5.40 M/CMM] 9.8 g/dL *LOW* (05/26/15 4:10 AM) 10.6 g/dL *LOW* (05/25/15 4:06 AM) 12.6 g/dL (05/20/15 12:58 PM) Hgb [12.0-16.0 g/dL] 31.0 % *LOW* (05/26/15 4:10 AM) 33.1 % *LOW* (05/25/15 4:06 AM) 38.6 % (05/20/15 12:58 PM) Hct [36.0-48.0 %] 81.5 fL (05/20/15 12:58 PM) MCV [80.0-98.0 fL] 26.5 pg *LOW* (05/20/15 12:58 PM) MCH [27.0-31.0 pg] 32.5 g/dL (05/20/15 12:58 PM) MCHC [32.0-36.0 g/dL] 14.7 % *HI* (05/20/15 12:58 PM) RDW [11.5-14.5 %] 341 K/CMM (05/24/15 4:19 PM) 349 K/CMM (05/20/15 12:58 PM) Platelet [133-450 K/CMM] 7.5 fL (05/20/15 12:58 PM) MPV [7.4-10.4 fL] 69.2 % (05/20/15 12:58 PM) Segs [45.0-75.0 %] 22.0 % (05/20/15 12:58 PM) Lymphocytes [20.0-40.0 %] 6.5 % (05/20/15 12:58 PM) Monocytes [2.0-12.0 %] 1.2 % (05/20/15 12:58 PM) Eosinophils [0.0-4.0 %] 1.1 % *HI* (05/20/15 12:58 PM) Basophils [0.0-1.0 %] 7.3 K/CMM (05/20/15 12:58 PM) Segs-Bands # [1.5-8.1 K/CMM] 2.3 K/CMM (05/20/15 12:58 PM) Lymphocytes # [1.0-5.5 K/CMM] 0.7 K/CMM (05/20/15 12:58 PM) Monocytes # [0.0-0.8 K/CMM] 0.1 K/CMM (05/20/15 12:58 PM) Eosinophils # [0.0-0.5 K/CMM] 0.1 K/CMM (05/20/15 12:58 PM) Basophils # [0.0-0.2 K/CMM] 14.7 seconds (05/20/15 12:58 PM) PT [12.0-14.7 seconds] 1.12 (05/20/15 12:58 PM) INR [0.85-1.17] 28.2 seconds (05/24/15 4:19 PM) 30.5 seconds (05/20/15 12:58 PM) PTT [22.9-35.8 seconds] Immunizations No data available for this section Procedures Procedure Date Related Diagnosis Body Site section Social History Social History Type Response Alcohol Past Smoking Status Former smoker; Exposure to Tobacco Smoke None; Cigarette Smoking Last 365 Days No; Reg Smoking Cessation Counseling No Assessment and Plan Extracted from: Title: Clinical Document Author: Pa Hyman DO Date: 05/26/15 Progress Daily [facility] SUBJECTIVE Pt slept well, denies ESTRADA, dizziness, CP, palpiation or SOB. pt with no fever or chills OBJECTIVE Vital Signs (last 24 hrs) Last Charted Temp Oral98.8 DegF (MAY 26 08:) Heart Rate [id number] bpm (MAY 26:) Resp Rate 18 BRMIN (MAY 26 08:) AUA128 mmHg (MAY 26) DBP73 mmHg (MAY 26:) Labs (Last four charted values) WBC H 10.5(MAY 20) Hgb L 9.8(MAY 26)L 10.6(MAY 25)12.6(MAY 20) Hct L 31.0(MAY 26)L 33.1(MAY 25)38.6(MAY 20) Plt 341(MAY 24)349(MAY 20) Na L 131(MAY 20) K 3.6(MAY 20) CO2 30(MAY 20) Cl L 92(MAY 20) Cr 0.9(MAY 24)0.7(MAY 20) BUN 14(MAY 20) Glucose Random H 125(MAY 20) Ca 9.3(MAY 20) PT 14.7(MAY 20) INR 1.12(MAY 20) PTT 28.2(MAY 24)30.5(MAY 20) Input/Output RecordInOutBal 05/2124hr Tot 0 0 0 05/2024hr Tot [phone] ASSESSMENT & EXAM Gen. Pt is AOX4 in no acute distress HEET: Normocephalic, nontraumatic. NECK: Supple, no JVD or Lymphadenopathy LUNGS: Clear on auscultation B/l with no wheezing or crackles HEART: S1, S2.RRR with no murmurs ABDOMEN: Soft, NT/ND with good BS CENTRAL NERVOUS SYSTEM: Patient moving all extremities grossly well. LOWER EXTREMITIES: No C/C/E. right knee surgical dressing is clean PLAN & TREATMENT Pt admitted after right TKR -Hgb is stable at 9.8 -Pain mgt -C/w Xarelto for DVT prophy -Pt is going home today, advised to f/u with PCP in 1 week DIAGNOSES & PROBLEMS S/p Right TKR DM Hypothyroidism Morbid obesity WES Scheduled Meds (6):amLODIPine (Norvasc), docusate (docusate sodium 100 mg oral capsule), hydrochlorothiazide (hydrochlorothiazide 50 mg oral tablet), levothyroxine, lisinopril (Prinivil), rivaroxaban Unscheduled Meds: None PRN Meds (21):Al hydroxide/Mg hydroxide/simethicone (Al hydroxide/Mg hydroxide/simethicone 200 mg-200 mg-20 mg/5 mL oral suspension), Dextrose 50% in Water IV (Dextrose 50% Syringe), Dextrose 50% in Water IV (Dextrose 50% Syringe), acetaminophen-hydrocodone ([place] 7.5/325 oral tablet), acetaminophen, albuterol (albuterol 0.083% inhalation solution), bisacodyl (Dulcolax Laxative), diphenhydrAMINE, glucagon, hydromorphone, insulin aspart, insulin aspart, insulin aspart, insulin aspart, insulin aspart, insulin aspart, insulin aspart, insulin aspart, insulin aspart, ketOROLAC, ondansetron One Time Meds: None Continuous Infusions (1):Lactated Ringers Injection IV 1,000 mL (Lactated Ringers IV 1,000 mL)
--- OUTSIDE RECORDS SUMMARY | 2018-05-26 10:55 | XMS REPORT ---
Author Author Nakul Draper Organization [employer] Address Unknown Phone Unavailable Care Team Providers Care Steward Dishwasher Name Role Phone Nakul Draper Unavailable Allergies, Adverse Reactions, Alerts Substance Reaction Event Type N.K.D.A. Info Not Available Non Drug Allergy Encounters Encounter Location Date Unknown [place] Mar 09, 2016 echo/carotid/arterial dopplers [place] Mar 09, 2016 [place]Up [place] Mar 22, 2016 Problems Problem Type Condition ICD-9 Code Onset Dates Condition Status Assessment Dependence on supplemental oxygen Z99.81 Active Assessment Morbid (severe) obesity due to excess calories E66.01 Active Problem Type 2 diabetes mellitus without complications E11.9 Active Problem Hypertensive heart disease with heart failure I11.0 Active Problem Hypertensive heart disease without heart failure I11.9 Active Assessment Hypertensive heart disease without heart failure I11.9 Active Assessment Type 2 diabetes mellitus without complications E11.9 Active Problem Morbid (severe) obesity due to excess calories E66.01 Active Problem Dependence on supplemental oxygen Z99.81 Active Medications Medication Code System Code Instructions Start Date End Date Status Dosage Potassium Chloride ER [facility] [address]-38 10 MEQ Orally Once a day Active 1 tablet with food GlipiZIDE [facility] [address]-67 10 MG Orally Once a day Active 1 tablet Hydrochlorothiazide [facility] [address]-60 50 MG Orally Once a day Active 1 tablet Norvasc [facility] [address]-06 10 MG Orally Once a day Active 1 tablet Levothyroxine Sodium [facility] [address]-63 50 MCG Orally Once a day Active 1 tablet Furosemide [facility] [address]-58 40 MG Orally Once a day Active 1 tablet MetFORMIN HCl ER [facility] [address]-58 500 MG Orally Once a day Active 1 tablet with evening meal Benazepril HCl [facility] [address]-94 40 MG Orally Once a day Active 1 tablet Social History Social History Element Qualifiers Date Reported Tobacco Use: . Are you a: never smoker Mar 22, 2016 Marital Status: . Mar 22, 2016 Do you drink alcohol? . Status: No Mar 22, 2016 Vital Signs Date/Time: Mar 22, 2016 Weight 276 lbs Cardiac Monitoring Heart Rate 77 /min Blood Pressure Diastolic 60 mm Hg Blood Pressure Systolic 120 mm Hg Summary Purpose eClinicalWorks Submission
--- OUTSIDE RECORDS SUMMARY | 2018-05-26 10:55 | XMS REPORT | Summary of Care ---
Author Author [facility] Organization [facility] Address Unknown Phone Unavailable Encounter [facility] Jamal_jj(FIN) [id number] Date(s): 10/12/17 - 10/12/[address] [facility] [address] [place] [address]- [phone] Encounter Diagnosis Unspecified cholesteatoma, left ear (Final) - 10/18/17 Disorder of left external ear, unspecified (Final) - Discharge Disposition: Home or Self Care Attending Physician: Huang Stevens MD Referring Physician: Huang Stevens MD Vital Signs No data available for [...]
--- OUTSIDE RECORDS SUMMARY | 2018-05-26 10:55 | XMS REPORT ---
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
--- OUTSIDE RECORDS SUMMARY | 2018-05-26 10:55 | XMS REPORT ---
Author Author Nakul Draper Organization [employer] Address Unknown Phone Unavailable Care Team Providers Care Deburrer Machine Name Role Phone Nakul Draper Unavailable Allergies, Adverse Reactions, Alerts Substance Reaction Event Type N.K.D.A. Info Not Available Non Drug Allergy Encounters Encounter Location Date Unknown [place] Mar 09, 2016 echo/carotid/arterial dopplers [place] Mar 09, 2016 Problems Problem Type Condition ICD-9 Code Onset Dates Condition Status Assessment Dependence on supplemental oxygen Z99.81 Active Problem Hypertensive heart disease with heart failure I11.0 Active Problem Morbid (severe) obesity due to excess calories E66.01 Active Problem Type 2 diabetes mellitus without complications E11.9 Active Assessment Morbid (severe) obesity due to excess calories E66.01 Active Assessment Type 2 diabetes mellitus without complications E11.9 Active Problem Dependence on supplemental oxygen Z99.81 Active Assessment Hypertensive heart disease with heart failure I11.0 Active Medications Medication Code System Code Instructions Start Date End Date Status Dosage Furosemide [facility] [address]-04 40 MG Orally Once a day Active 1 tablet Hydrochlorothiazide [facility] [address]-98 50 MG Orally Once a day Active 1 tablet MetFORMIN HCl ER [facility] [address]-21 500 MG Orally Once a day Active 1 tablet with evening meal Potassium Chloride ER [facility] [address]-56 10 MEQ Orally Once a day Active 1 tablet with food GlipiZIDE [facility] [address]-68 10 MG Orally Once a day Active 1 tablet Norvasc [facility] [address]-06 10 MG Orally Once a day Active 1 tablet Benazepril HCl [facility] [address]-30 40 MG Orally Once a day Active 1 tablet Levothyroxine Sodium [facility] [address]-53 50 MCG Orally Once a day Active 1 tablet Social History Social History Element Qualifiers Date Reported Tobacco Use: . Are you a: never smoker Mar 09, 2016 Marital Status: . Mar 09, 2016 Do you drink alcohol? . Status: No Mar 09, 2016 Vital Signs Date/Time: Mar 09, 2016 Weight 279 lbs Cardiac Monitoring Heart Rate 86 /min Blood Pressure Diastolic 60 mm Hg Blood Pressure Systolic 115 mm Hg Summary Purpose [employer] Submission
--- OUTSIDE RECORDS SUMMARY | 2018-05-26 10:55 | XMS REPORT ---
Author 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 Allergies, Adverse Reactions, Alerts This patient has no known allergies or adverse reactions. Medications This patient has no known medications. Results Test Description Test Time Test Comments Text Results Atomic Results Result Comments CHEST 2 VIEWS [place] [address] Patient Name: INES FARNSWORTH MR #: [id number] : 1960 Age/Sex: 56/F Req #: [id number] Adm Physician: Ordered by: CASH RODRIGUEZ MD Report #: [id number] Location: ER Room/Bed: Procedure: [id number] DX/CHEST 2 VIEWS Exam Date: 09/29/17 Exam Time: 2244 REPORT STATUS: Signed EXAMINATION: CHEST 2 VIEWS INDICATION: Cough, congestion COMPARISON: None FINDINGS: TUBES and LINES: None. LUNGS: Lungs are well inflated. There are bibasilar atelectasis. There is mild prominence of the central pulmonary vasculature, consistent with pulmonary venous congestion. PLEURA: No pleural effusion or pneumothorax. HEART AND MEDIASTINUM: The cardiomediastinal silhouette is unremarkable. There are atherosclerotic calcifications within the aorta. BONES AND SOFT TISSUES: No acute osseous lesion. Soft tissues are unremarkable. UPPER ABDOMEN: No free air under the diaphragm. IMPRESSION: No acute thoracic abnormality. Signed by: Dr. Uvaldo Hastings M.D. on 09/29/2017 11:40 PM Dictated By: UVALDO MCELROY MD 39 Transcribed By: JAYLYN on 09/29/172339 COPY TO: CASH RODRIGUEZ MD
[2018-05-26] MEDS ORDERED: GABAPENTIN100 MG PO (11:22)
--- NOTE | 2018-05-26 12:12 | Diagnostic Imaging Report ---
LEFT FOOT X-RAY - 3 VIEWS HISTORY: ^trauma, tingling distal dorsa foot ^[id number] ^[id number] COMPARISON: None available. FINDINGS: Bones: No acute displaced fracture. Osseous alignment is within normal limits. Joints: The joint spaces are well-maintained. Large enthesopathy in the calcaneus. Degenerative changes of the midfoot and distal interphalangeal joints. Soft tissues: The soft tissues appear unremarkable. IMPRESSION: No acute fractures in the left foot. The ankle is not well visualized. If clinical concern for fractures of the ankle, consider left ankle x-ray series. Signed by: Dr. Justa Marc M.D. on 05/26/2018 12:08 PM
== END 2018-05-26 12:43 | disposition home or self-care (01) ==
LOC: ER 10:52
DX: M79.672 Pain in left foot (principal); E11.40 Type 2 diabetes mellitus with diabetic neuropathy, unspecified; I10 Essential (primary) hypertension
CPT/HCPCS: 99283